=== PATIENT | male | born 1995 | race Caucasian/White ===

== ENCOUNTER 2017-12-04 07:25 | Inpatient (IN) | payer MEDICAID ==
[~2017-12-04] VITALS: Ht 167.6 cm; Wt 102.5 kg
[2017-12-04] MEDS ORDERED: HYD25 PO (08:00)
[2017-12-04] MEDS ORDERED: ARIP10TA8 PO (08:00)
[2017-12-04] MEDS ORDERED: IBUP-2070 PO (08:00)
[2017-12-04] MEDS ORDERED: TRAZ-144 PO (08:00)
[2017-12-04 08:42] LABS: BASOPHILS % (AUTO) 0.4 % (0.0-2.0); EOSINOPHILS % (AUTO) 2.6 % (1.0-6.0); HEMATOCRIT 43.3 % (41-53); HEMOGLOBIN 15.2 g/dL (13.5-17.5); LYMPHOCYTES # (AUTO) 1.9 K/uL (1.0-4.8); LYMPHOCYTES % (AUTO) 24.7 % (22.0-44.0); MEAN CORPUSCULAR HEMOGLOBIN 29.2 pg (26.0-34.0); MEAN CORPUSCULAR HGB CONC 35.1 G/dL (31.0-37.0); MEAN CORPUSCULAR VOLUME 83 fL (80-100); MONOCYTES # (AUTO) 0.6 K/uL (0.1-1.0); MONOCYTES % (AUTO) 7.7 % (2.0-9.0); NEUTROPHILS # (AUTO) 4.9 K/uL (1.8-7.7); NEUTROPHILS % (AUTO) 64.6 % (40.0-70.0); PLATELET COUNT (AUTO) 300 K/uL (150-450); RED CELL DISTRIBUTION WIDTH 13.5 % (11.5-14.5)
[2017-12-04 08:48] LABS: AMPHET/METH SCREEN,URINE NEGATIVE (NEGATIVE); BARBITURATE SCREEN, URINE NEGATIVE (NEGATIVE); BENZODIAZEPINES SCREEN,URINE NEGATIVE (NEGATIVE); CANNABINOID SCREEN,URINE NEGATIVE (NEGATIVE); COCAINE SCREEN,URINE NEGATIVE (NEGATIVE); METHADONE SCREEN, URINE NEGATIVE (NEGATIVE); OPIATE SCREEN,URINE NEGATIVE (NEGATIVE); PHENCYCLIDINE SCREEN,URINE NEGATIVE (NEGATIVE)
[2017-12-04 08:51] LABS: ANION GAP 8 mmol/L (8-16); CALCIUM, TOTAL 9.2 mg/dL (8.8-10.5); CARBON DIOXIDE 29 mmol/L (22-29); CHLORIDE 104 mmol/L (98-107); GLOMERULAR FILTR. RATE CALC > 60 mL/min (>60); GLUCOSE,RANDOM 102 mg/dL (70-110); POTASSIUM 3.9 mmol/L (3.5-5.1); SODIUM SERUM 141 mmol/L (136-145); UREA NITROGEN, BLOOD 15 mg/dL (7-18)
[2017-12-04 08:57] LABS: ALANINE AMINOTRANSFERASE 58 U/L (12-78); ALBUMIN 3.9 g/dL (3.4-5.0); ALKALINE PHOSPHATASE 63 U/L (46-116); ASPARTATE AMINOTRANSFERASE 21 U/L (15-37); BILIRUBIN,TOTAL 0.2 mg/dL (0.1-1.0); TOTAL PROTEIN, SERUM 7.1 g/dL (6.4-8.2)
[2017-12-04] MEDS ORDERED: HALOPERIDOL 5 MG TABLET PO PRN (12:30)
[2017-12-04] MEDS ORDERED: LORazepam 2 MG TABLET PO PRN (12:30)
[2017-12-04 12:53] LABS: CHOL/HDL RATIO 4.6 (4.2-7.3); CHOLESTEROL 192 mg/dL (131-200); HDL CHOLESTEROL 42 mg/dL (40-60); LDL CHOL (CALC.) 116 mg/dL (0-130); TRIGLYCERIDES 169 mg/dL (15-150)
[2017-12-04 17:37] VITALS: BP 142/77
[2017-12-04] MEDS ORDERED: ALBUTEROL SULFATE HFA 90 MCG/PUFF 8 GM INHALER IH PRN (19:00)
[2017-12-04] MEDS ORDERED: PETROLATUM,WHITE 71 GM JELLY TP PRN (19:00)
[2017-12-04] MEDS ORDERED: MAGNESIUM HYDROXIDE SUSPENSION 30 ML UDCUP PO PRN (19:00)
[2017-12-04] MEDS ORDERED: BENZOCAINE/MENTHOL LOZENGE MM PRN (19:00)
[2017-12-04] MEDS ORDERED: ACETAMINOPHEN 325 MG TABLET PO PRN (19:00)
[2017-12-04] MEDS ORDERED: CloNIDine HCL 0.1 MG TABLET PO PRN (19:00)
[2017-12-04] MEDS ORDERED: IBUPROFEN 600 MG TABLET PO PRN (19:00)
[2017-12-04] MEDS ORDERED: ONDANSETRON HCL 4 MG TABLET PO PRN (19:00)
[2017-12-04] MEDS ORDERED: LOPERAMIDE HCL 2 MG CAPSULE PO PRN (19:00)
[2017-12-04] MEDS ORDERED: MAG HYDROX/AL HYDROX/SIMETH ES 30 ML SUSPENSION UDCUP PO PRN (19:00)
[2017-12-04] MEDS ORDERED: BACITRACIN 28.4 GM OINTMENT TP PRN (19:00)
[2017-12-04] MEDS ORDERED: PNEUMOCOCCAL VACCINE POLYVALENT 0.5 ML VIAL [PPSV23] IM ONE (19:15)
[2017-12-04] MEDS: TraZODone HCL 50 MG TABLET PO SCH (20:24)
[2017-12-05 06:14] VITALS: BP 123/60
[2017-12-05 08:06] LABS: HEMATOCRIT 43.7 % (41-53); HEMOGLOBIN 15.2 g/dL (13.5-17.5); MEAN CORPUSCULAR HEMOGLOBIN 29.3 pg (26.0-34.0); MEAN CORPUSCULAR HGB CONC 34.7 G/dL (31.0-37.0); MEAN CORPUSCULAR VOLUME 84 fL (80-100); PLATELET COUNT (AUTO) 286 K/uL (150-450); RED BLOOD CELL COUNT(AUTO) 5.18 MIL/uL (4.50-5.90); RED CELL DISTRIBUTION WIDTH 13.5 % (11.5-14.5)
[2017-12-05 08:33] VITALS: BP 119/60
[2017-12-05] MEDS: ARIPiprazole 10 MG TABLET PO SCH (08:36)
[2017-12-05] MEDS: DOCUSATE SODIUM 100 MG CAPSULE PO SCH (08:36)
[2017-12-05 09:04] LABS: ANION GAP 11 mmol/L (8-16); CALCIUM, TOTAL 8.8 mg/dL (8.8-10.5); CARBON DIOXIDE 26 mmol/L (22-29); CHLORIDE 102 mmol/L (98-107); CHOL/HDL RATIO 4.2 (4.2-7.3); CHOLESTEROL 203 mg/dL (131-200); CREATININE 0.89 mg/dL (0.60-1.30); GLOMERULAR FILTR. RATE CALC > 60 mL/min (>60); GLUCOSE,RANDOM 90 mg/dL (70-110); HDL CHOLESTEROL 48 mg/dL (40-60); LDL CHOL (CALC.) 131 mg/dL (0-130); PHOSPHORUS 4.2 mg/dL (2.5-4.9); POTASSIUM 3.9 mmol/L (3.5-5.1); SODIUM SERUM 139 mmol/L (136-145); THYROID STIMULATING HORMONE 2.61 uIU/mL (0.36-3.74); TRIGLYCERIDES 120 mg/dL (15-150); UREA NITROGEN, BLOOD 16 mg/dL (7-18)
[2017-12-05 09:57] LABS: EOSINOPHILS % (MANUAL) 4 % (1-6); LYMPHOCYTES % (MANUAL) 27 % (22-44); MONOCYTES % (MANUAL) 6 % (2-9); SEGMENTED NEUTROPHILS % 63 % (40-70)
[2017-12-05 16:13] VITALS: BP 115/72
[2017-12-05] MEDS: TraZODone HCL 50 MG TABLET PO SCH (20:20)
[2017-12-06 05:42] VITALS: BP 115/87
[2017-12-06 07:55] VITALS: BP 113/48
[2017-12-06] MEDS: CHOLECALCIFEROL (VIT D3) 1,000 UNITS TABLET PO SCH (09:58)
[2017-12-06] MEDS: ARIPiprazole 10 MG TABLET PO SCH (09:58)
[2017-12-06] MEDS: DOCUSATE SODIUM 100 MG CAPSULE PO SCH (09:58)
[2017-12-06 13:45] VITALS: BP 113/48
[2017-12-06] MEDS: TraZODone HCL 50 MG TABLET PO SCH (20:24)
[2017-12-06 21:42] VITALS: BP 114/56
[2017-12-07 07:09] VITALS: BP 112/82
[2017-12-07 08:41] VITALS: BP 124/84
[2017-12-07] MEDS: ARIPiprazole 10 MG TABLET PO SCH (09:26)
[2017-12-07] MEDS: DOCUSATE SODIUM 100 MG CAPSULE PO SCH (09:26)
[2017-12-07] MEDS: CHOLECALCIFEROL (VIT D3) 1,000 UNITS TABLET PO SCH (09:26)
[2017-12-07 16:25] VITALS: BP 125/84
[2017-12-07] MEDS: ZOLPIDEM TARTRATE 10 MG TABLET PO PRN (20:15)
[2017-12-07] MEDS: TraZODone HCL 50 MG TABLET PO SCH (20:15)
[2017-12-08 00:59] VITALS: BP 122/70
[2017-12-08] MEDS: DOCUSATE SODIUM 100 MG CAPSULE PO SCH (08:25)
[2017-12-08] MEDS: ARIPiprazole 10 MG TABLET PO SCH (08:25)
[2017-12-08] MEDS: CHOLECALCIFEROL (VIT D3) 1,000 UNITS TABLET PO SCH (08:25)
[2017-12-08 08:34] VITALS: BP 119/62
[2017-12-08 16:39] VITALS: BP 116/65
[2017-12-08] MEDS: TraZODone HCL 50 MG TABLET PO SCH (20:49)
[2017-12-08] MEDS: ZOLPIDEM TARTRATE 10 MG TABLET PO PRN (20:49)
[2017-12-09 01:21] VITALS: BP 130/65
[2017-12-09] MEDS ORDERED: DSS100 PO (08:16)
[2017-12-09] MEDS ORDERED: VITAD1000 PO (08:16)
[2017-12-09] MEDS: DOCUSATE SODIUM 100 MG CAPSULE PO SCH (08:23)
[2017-12-09] MEDS: CHOLECALCIFEROL (VIT D3) 1,000 UNITS TABLET PO SCH (08:23)
[2017-12-09] MEDS: ARIPiprazole 10 MG TABLET PO SCH (08:23)
[2017-12-09 08:34] VITALS: BP 117/64
== END 2017-12-09 10:30 | disposition home or self-care (01) | DRG 750 ==
LOC: EMS 07:28 → B2S 15:59
PROVIDERS: ADMIT Psychiatry & Neurology Psychiatry; ATTEND Psychiatry & Neurology Psychiatry
DX: F25.9 Schizoaffective disorder, unspecified (principal); R45.851 Suicidal ideations; F32.9 Major depressive disorder, single episode, unspecified; F41.9 Anxiety disorder, unspecified; G47.00 Insomnia, unspecified; F17.200 Nicotine dependence, unspecified, uncomplicated; E55.9 Vitamin D deficiency, unspecified; E66.9 Obesity, unspecified; R03.0 Elevated blood-pressure reading, without diagnosis of hypertension; E78.00 Pure hypercholesterolemia, unspecified; F12.90 Cannabis use, unspecified, uncomplicated; Z68.36 Body mass index [BMI] 36.0-36.9, adult; Z79.899 Other long term (current) drug therapy
CPT/HCPCS: 82306; 83735; 84100; 84443; 85007; 99285; G0480

== ENCOUNTER 2018-01-15 15:59 | Emergency (ER) | payer MEDICAID ==
[~2018-01-15] VITALS: Ht 162.6 cm; Wt 104.5 kg
[~2018-01-15 15:59] MED LIST: ARIP10TA8 PO; DSS100 PO; TRAZ-144 PO; VITAD1000 PO
[2018-01-15] MEDS ORDERED: ESCI20TA PO (16:27)
[2018-01-15] MEDS ORDERED: HYDR-4031 PO (16:27)
[2018-01-15] MEDS ORDERED: IBUP-2070 PO (16:27)
[2018-01-15] MEDS ORDERED: ARIP15TA2 PO (16:27)
[2018-01-15] MEDS ORDERED: BUPR100T6 PO (16:27)
[2018-01-15 16:41] LABS: BASOPHILS % (AUTO) 0.4 % (0.0-2.0); EOSINOPHILS % (AUTO) 2.7 % (1.0-6.0); LYMPHOCYTES # (AUTO) 2.2 K/uL (1.0-4.8); LYMPHOCYTES % (AUTO) 23.8 % (22.0-44.0); MEAN CORPUSCULAR HEMOGLOBIN 28.5 pg (26.0-34.0); MEAN CORPUSCULAR HGB CONC 34.1 G/dL (31.0-37.0); MEAN CORPUSCULAR VOLUME 84 fL (80-100); MONOCYTES # (AUTO) 0.9 K/uL (0.1-1.0); MONOCYTES % (AUTO) 9.8 % (2.0-9.0); NEUTROPHILS # (AUTO) 5.9 K/uL (1.8-7.7); NEUTROPHILS % (AUTO) 63.3 % (40.0-70.0); PLATELET COUNT (AUTO) 305 K/uL (150-450); RED BLOOD CELL COUNT(AUTO) 5.25 MIL/uL (4.50-5.90); RED CELL DISTRIBUTION WIDTH 13.5 % (11.5-14.5)
[2018-01-15 16:53] LABS: ANION GAP 8 mmol/L (8-16); CALCIUM, TOTAL 8.9 mg/dL (8.8-10.5); CARBON DIOXIDE 27 mmol/L (22-29); CHLORIDE 103 mmol/L (98-107); CREATININE 0.92 mg/dL (0.60-1.30); GLOMERULAR FILTR. RATE CALC > 60 mL/min (>60); GLUCOSE,RANDOM 87 mg/dL (70-110); POTASSIUM 3.9 mmol/L (3.5-5.1); SODIUM SERUM 138 mmol/L (136-145); UREA NITROGEN, BLOOD 13 mg/dL (7-18)
[2018-01-15 16:58] LABS: ALANINE AMINOTRANSFERASE 76 U/L (12-78); ALBUMIN 3.8 g/dL (3.4-5.0); ALKALINE PHOSPHATASE 58 U/L (46-116); ASPARTATE AMINOTRANSFERASE 29 U/L (15-37); BILIRUBIN,TOTAL 0.2 mg/dL (0.1-1.0); TOTAL PROTEIN, SERUM 7.2 g/dL (6.4-8.2)
[2018-01-15 18:23] LABS: AMPHET/METH SCREEN,URINE NEGATIVE (NEGATIVE); BARBITURATE SCREEN, URINE NEGATIVE (NEGATIVE); BENZODIAZEPINES SCREEN,URINE NEGATIVE (NEGATIVE); CANNABINOID SCREEN,URINE NEGATIVE (NEGATIVE); COCAINE SCREEN,URINE NEGATIVE (NEGATIVE); METHADONE SCREEN, URINE NEGATIVE (NEGATIVE); OPIATE SCREEN,URINE NEGATIVE (NEGATIVE); PHENCYCLIDINE SCREEN,URINE NEGATIVE (NEGATIVE)
[2018-01-15 18:32] VITALS: BP 128/71
== END 2018-01-15 18:55 | disposition home or self-care (01) ==
LOC: EMS 16:00
DX: F41.9 Anxiety disorder, unspecified (principal); F91.9 Conduct disorder, unspecified; F32.9 Major depressive disorder, single episode, unspecified; F17.210 Nicotine dependence, cigarettes, uncomplicated; Z79.899 Other long term (current) drug therapy
CPT/HCPCS: 36415; 80053; 80307; 85025; 99285; 99406; G0480